=== PATIENT | female | born 1970 | race Caucasian/White ===

== ENCOUNTER 2021-01-26 08:32 | Emergency (ER) | payer MEDICAID ==
[~2021-01-26] VITALS: Ht 152.4 cm; Wt 74.0 kg
[2021-01-26] MEDS ORDERED: MAGNESIUM/ALUMINUM HYDROXIDE/SIMETHICONE 30ML UDC PO ONE (09:30)
[2021-01-26] MEDS ORDERED: FAMOTIDINE 20MG/2ML VIAL IV ONE (09:30)
[2021-01-26 09:31] LABS: BASOPHILS % 0.6 % (0.0-2.0); EOSINOPHILS % 1.8 % (0.0-5.0); HEMATOCRIT. 38.9 % (36.0-48.0); HEMOGLOBIN. 13.8 g/dL (12.0-16.0); MEAN CORPUSCULAR HEMOGLOBIN 29.8 pg (28.0-32.0); MEAN PLATELET VOLUME 9.5 fl (7.4-10.4); NEUTROPHILS % 73.6 % (40.0-76.0); PLATELET 318 x1000/uL (130-400); RED BLOOD CELL COUNT 4.63 mill/uL (4.2-5.4); RED CELL DISTRIBUTION WIDTH 13.7 % (11.6-14.6)
[2021-01-26 09:54] LABS: *AMPHETAMINES SCREEN URINE NEGATIVE (NEGATIVE); *BARBITURATES SCREEN URINE NEGATIVE (NEGATIVE); *BENZODIAZEPINES SCREEN URINE NEGATIVE (NEGATIVE); *COCAINE SCREEN URINE NEGATIVE (NEGATIVE); METHADONE URINE SCREEN NEGATIVE (NEGATIVE); OPIATES URINE SCREEN NEGATIVE (NEGATIVE)
[2021-01-26 09:55] LABS: CANNABINOID URINE SCREEN NEGATIVE (NEGATIVE); PHENCYCLIDINE URINE SCREEN NEGATIVE (NEGATIVE)
[2021-01-26 10:00] LABS: CHLORIDE 106 mEq/L (98-107)
[2021-01-26] MEDS ORDERED: VISCOUS LIDOCAINE 2% 15 ML UDC MM ONE (11:45)
[2021-01-26] MEDS ORDERED: MORPHINE SULFATE 4 MG/ML CPJ (NOT FOR IM USE) IV ONE (11:45)
[2021-01-26] MEDS ORDERED: FAMO-135 MT (13:54)
[2021-01-26] MEDS ORDERED: MAG355OR21 MT (13:54)
[2021-01-26] MEDS ORDERED: SUCR1TAB30 MT (13:54)
[2021-01-26] MEDS ORDERED: SUCRALFATE 1 G/10 ML UDC PO ONE (14:00)
[2021-01-26 14:16] VITALS: BP 123/75
== END 2021-01-26 14:45 | disposition home or self-care (01) ==
LOC: ER 08:32
DX: R10.13 Epigastric pain (principal); R07.89 Other chest pain; I10 Essential (primary) hypertension; Z13.9 Encounter for screening, unspecified
CPT/HCPCS: 36415; 71045; 80053; 80305; 83880; 84484; 85025; 93005; 96374; 99285; J3490; Z7610

== ENCOUNTER 2021-01-26 23:38 | Inpatient (IN) | payer MEDICAID, OTHER ==
[~2021-01-26] VITALS: Ht 152.4 cm; Wt 74.8 kg
[~2021-01-26 23:38] MED LIST: FAMO-135 MT; MAG355OR21 MT; SUCR1TAB30 MT
[2021-01-27] MEDS ORDERED: VISCOUS LIDOCAINE 2% 15 ML UDC PO ONE (02:15)
[2021-01-27] MEDS ORDERED: ONDANSETRON 4MG ODT PO ONE (02:15)
[2021-01-27] MEDS ORDERED: MAGNESIUM/ALUMINUM HYDROXIDE/SIMETHICONE 30ML UDC PO ONE (02:15)
[2021-01-27 02:31] LABS: BASOPHILS % 0.4 % (0.0-2.0); EOSINOPHILS % 0.6 % (0.0-5.0); HEMOGLOBIN. 13.7 g/dL (12.0-16.0); MEAN CORPUSCULAR HEMOGLOBIN 29.2 pg (28.0-32.0); MEAN CORPUSCULAR VOLUME 85.3 fL (81.0-99.0); MEAN PLATELET VOLUME 8.1 fl (7.4-10.4); PLATELET 281 x1000/uL (130-400); RED BLOOD CELL COUNT 4.69 mill/uL (4.2-5.4); RED CELL DISTRIBUTION WIDTH 13.6 % (11.6-14.6)
[2021-01-27 02:40] LABS: CHLORIDE 102 mEq/L (98-107)
[2021-01-27] MEDS ORDERED: ASPIRIN 81MG TABLET PO ONE (03:15)
[2021-01-27] MEDS ORDERED: MORPHINE SULFATE 2 MG/ML CPJ (NOT FOR IM USE) IV PRN (04:00)
[2021-01-27] MEDS ORDERED: KETOROLAC 15MG/ML VIAL IV ONE (04:45)
[2021-01-27] MEDS: MORPHINE SULFATE 2 MG/ML CPJ (NOT FOR IM USE) IV PRN ×2 (09:42→20:29)
[2021-01-27 11:07] VITALS: BP 120/58
[2021-01-27 12:00] VITALS: BP 119/53
[2021-01-27] MEDS ORDERED: ONDANSETRON HCL 4MG/2ML INJ IV PRN (12:00)
[2021-01-27] MEDS ORDERED: DOCUSATE SODIUM 100MG CAPSULE PO PRN (12:00)
[2021-01-27] MEDS ORDERED: MAGNESIUM/ALUMINUM HYDROXIDE/SIMETHICONE 30ML UDC PO PRN (12:00)
[2021-01-27] MEDS ORDERED: CLONIDINE 0.1MG TABLET PO PRN (12:00)
[2021-01-27] MEDS: PANTOPRAZOLE SODIUM 40 MG/VIAL IV SCH (12:25)
[2021-01-27] MEDS: ENOXAPARIN 40MG/0.4ML SYR SUBCUT SCH (12:25)
[2021-01-27] MEDS: HYDROCODONE/ACETAMINOPHEN 5/325MG TABLET PO PRN (12:26)
[2021-01-27 16:00] VITALS: BP 112/56
[2021-01-27 20:00] VITALS: BP 119/63
[2021-01-27 20:26] LABS: CLARITY URINE CLOUDY (CLEAR); COLOR URINE DARK YELLOW (YELLOW); KETONES URINE 2+ (NEGATIVE); LEUKOCYTE ESTERASE URINE 2+ (NEGATIVE); NITRITE URINE NEGATIVE (NEGATIVE); OCCULT BLOOD URINE 2+ (NEGATIVE); PROTEIN URINE TRACE (NEGATIVE); SPECIFIC GRAVITY URINE 1.023 (1.005-1.030)
[2021-01-27] MEDS: ACETAMINOPHEN 325MG TABLET PO PRN (20:31)
[2021-01-27 20:52] LABS: *AMPHETAMINES SCREEN URINE NEGATIVE (NEGATIVE); *BARBITURATES SCREEN URINE NEGATIVE (NEGATIVE); *BENZODIAZEPINES SCREEN URINE NEGATIVE (NEGATIVE)
[2021-01-27 20:53] LABS: *COCAINE SCREEN URINE NEGATIVE (NEGATIVE); CANNABINOID URINE SCREEN NEGATIVE (NEGATIVE); METHADONE URINE SCREEN NEGATIVE (NEGATIVE); OPIATES URINE SCREEN PRESUMTIVE POSITIVE (NEGATIVE); PHENCYCLIDINE URINE SCREEN NEGATIVE (NEGATIVE)
[2021-01-28] VITALS: BP 108/61
[2021-01-28] MEDS: HYDROCODONE/ACETAMINOPHEN 5/325MG TABLET PO PRN ×2 (00:31→05:57)
[2021-01-28] MEDS: CEFTRIAXONE 1,000 MG in DEXTROSE 5% WATER 50 ML IV SCH (00:32)
[2021-01-28 04:00] VITALS: BP 98/55
[2021-01-28 07:14] LABS: HEMATOCRIT. 41.5 % (36.0-48.0); HEMOGLOBIN. 13.9 g/dL (12.0-16.0); MEAN CORPUSCULAR HEMOGLOBIN 28.6 pg (28.0-32.0); MEAN CORPUSCULAR VOLUME 85.4 fL (81.0-99.0); PLATELET 291 x1000/uL (130-400); RED BLOOD CELL COUNT 4.85 mill/uL (4.2-5.4); RED CELL DISTRIBUTION WIDTH 13.6 % (11.6-14.6)
[2021-01-28 07:33] LABS: CHLORIDE 101 mEq/L (98-107)
[2021-01-28 07:45] LABS: PHOSPHORUS 2.3 mg/dL (2.5-4.9)
[2021-01-28 07:46] LABS: LDL CHOLESTEROL 26 mg/dL (5-100)
[2021-01-28 07:48] LABS: HDL CHOLESTEROL 104 mg/dL (40-59)
[2021-01-28 08:00] VITALS: BP 104/64
[2021-01-28] MEDS: ENOXAPARIN 40MG/0.4ML SYR SUBCUT SCH (09:28)
[2021-01-28] MEDS: PANTOPRAZOLE SODIUM 40 MG/VIAL IV SCH (09:28)
[2021-01-28 12:00] VITALS: BP 101/51
[2021-01-28] MEDS: ACETAMINOPHEN 325MG TABLET PO PRN ×2 (13:06→20:22)
[2021-01-28 13:36] LABS: PLATELET ESTIMATE NORMAL
[2021-01-28] MEDS ORDERED: POTASSIUM CHLORIDE 20MEQ TABLET SR PO NR (13:53)
[2021-01-28 16:00] VITALS: BP 100/64
[2021-01-28 17:55] LABS: HEPATITIS B SURFACE ANTIGEN NEGATIVE
[2021-01-28] MEDS ORDERED: IOHEXOL-300 100 ML BOTTLE ONE (18:11)
[2021-01-28 18:25] LABS: HEPATITIS A AB IGM NEGATIVE (NEGATIVE)
[2021-01-28 20:00] VITALS: BP 88/46
[2021-01-29] VITALS: BP 108/57
[2021-01-29] MEDS: CEFTRIAXONE 1,000 MG in DEXTROSE 5% WATER 50 ML IV SCH (01:50)
[2021-01-29 04:00] VITALS: BP 100/59
[2021-01-29 08:00] VITALS: BP 94/67
[2021-01-29 08:33] LABS: BASOPHILS % 0.1 % (0.0-2.0); EOSINOPHILS % 1.4 % (0.0-5.0); HEMATOCRIT. 39.1 % (36.0-48.0); HEMOGLOBIN. 13.1 g/dL (12.0-16.0); LYMPHOCYTES % 8.8 % (20.0-50.0); MEAN CORPUSCULAR HEMOGLOBIN 28.7 pg (28.0-32.0); MEAN PLATELET VOLUME 9.4 fl (7.4-10.4); MONOCYTES % 7.5 % (2.0-8.0); NEUTROPHILS % 82.2 % (40.0-76.0); PLATELET 291 x1000/uL (130-400); RED BLOOD CELL COUNT 4.55 mill/uL (4.2-5.4); RED CELL DISTRIBUTION WIDTH 13.8 % (11.6-14.6)
[2021-01-29] MEDS ORDERED: SODIUM CHLORIDE 0.9% 500 ML IV NR ×2 (08:36→08:45)
[2021-01-29] MEDS: PANTOPRAZOLE SODIUM 40 MG/VIAL IV SCH (08:47)
[2021-01-29] MEDS: ENOXAPARIN 40MG/0.4ML SYR SUBCUT SCH (08:47)
[2021-01-29 08:50] LABS: CHLORIDE 104 mEq/L (98-107)
[2021-01-29] MEDS ORDERED: METOPROLOL TARTRATE 50MG TABLET PO SCH (09:00)
[2021-01-29 12:00] VITALS: BP 90/57
[2021-01-29] MEDS: ACETAMINOPHEN 325MG TABLET PO PRN ×2 (12:41→22:54)
[2021-01-29 16:00] VITALS: BP 94/53
[2021-01-29 20:00] VITALS: BP 96/56
[2021-01-30] VITALS: BP 98/58
[2021-01-30 04:00] VITALS: BP 100/60
[2021-01-30] MEDS: CEFTRIAXONE 1,000 MG in DEXTROSE 5% WATER 50 ML IV SCH (04:45)
[2021-01-30 07:50] LABS: BASOPHILS % 0.3 % (0.0-2.0); EOSINOPHILS % 2.7 % (0.0-5.0); HEMATOCRIT. 35.9 % (36.0-48.0); HEMOGLOBIN. 11.9 g/dL (12.0-16.0); MEAN CORPUSCULAR HEMOGLOBIN 28.9 pg (28.0-32.0); MEAN CORPUSCULAR VOLUME 86.9 fL (81.0-99.0); MEAN PLATELET VOLUME 9.2 fl (7.4-10.4); MONOCYTES % 7.2 % (2.0-8.0); NEUTROPHILS % 76.8 % (40.0-76.0); PLATELET 277 x1000/uL (130-400); RED BLOOD CELL COUNT 4.13 mill/uL (4.2-5.4); RED CELL DISTRIBUTION WIDTH 14.1 % (11.6-14.6)
[2021-01-30 08:00] VITALS: BP 113/65
[2021-01-30 08:17] LABS: CHLORIDE 107 mEq/L (98-107)
[2021-01-30] MEDS: PANTOPRAZOLE SODIUM 40 MG/VIAL IV SCH (09:25)
[2021-01-30] MEDS: METRONIDAZOLE 500 MG PREMIX 100 ML IV SCH ×2 (09:25→17:08)
[2021-01-30 12:00] VITALS: BP 107/65
[2021-01-30] MEDS ORDERED: POTASSIUM CHLORIDE 20MEQ TABLET SR PO SCH (12:00)
[2021-01-30 16:00] VITALS: BP 103/57
[2021-01-30] MEDS: ACETAMINOPHEN 325MG TABLET PO PRN (17:08)
[2021-01-30 20:00] VITALS: BP 109/63
[2021-01-31] VITALS: BP 90/48
[2021-01-31] MEDS: METRONIDAZOLE 500 MG PREMIX 100 ML IV SCH ×2 (02:14→09:36)
[2021-01-31] MEDS: CEFTRIAXONE 1,000 MG in DEXTROSE 5% WATER 50 ML IV SCH (03:11)
[2021-01-31 04:00] VITALS: BP 105/59
[2021-01-31 08:00] VITALS: BP 104/65
[2021-01-31] MEDS: PANTOPRAZOLE SODIUM 40 MG/VIAL IV SCH (09:36)
[2021-01-31] MEDS ORDERED: LEVO500T89 MT (11:20)
== END 2021-01-31 12:00 | disposition home or self-care (01) | DRG 720 ==
LOC: ER 23:38 → 5WST 01-27 03:23 → CANRESERV 01-27 07:40 → ENRESERV 01-27 07:40
PROVIDERS: ADMIT Internal Medicine; ATTEND Internal Medicine
DX: A41.9 Sepsis, unspecified organism (principal); K80.00 Calculus of gallbladder with acute cholecystitis without obstruction; E66.9 Obesity, unspecified; K57.30 Diverticulosis of large intestine without perforation or abscess without bleeding; R74.01 Elevation of levels of liver transaminase levels; K21.9 Gastro-esophageal reflux disease without esophagitis; F40.240 Claustrophobia; N39.0 Urinary tract infection, site not specified; E87.6 Hypokalemia; Z68.32 Body mass index [BMI] 32.0-32.9, adult; Z87.442 Personal history of urinary calculi; Z82.49 Family history of ischemic heart disease and other diseases of the circulatory system; E83.41 Hypermagnesemia
CPT/HCPCS: 36415; 74177; 76705; 78227; 80048; 80053; 80061; 80076; 80305; 81003; 83735; 84100; 84443; 84484; 85025; 86705; 86709; 86803; 87340; 93005; 93970; 99285; A9537; C9113; J0696; J1650; J1885; J2270; J3490; J7040; J7060; Q0162; Q9967